=== PATIENT | female | born 1995 | race Caucasian/White ===

== ENCOUNTER → 2019-03-18 10:29 | Outpatient (CLI) | payer OTHER, SELFPAY ==
[2019-03-18 12:19] LABS: Urine N gonorrhoeae NOT DETECTED
[2019-03-18 12:29] LABS: Urine Chlamydia NOT DETECTED
== END ==
PROVIDERS: PCP Family Medicine; Visit Provider Physician Assistant
DX: B37.3 Candidiasis of vulva and vagina (principal); R82.90 Unspecified abnormal findings in urine; Z11.3 Encounter for screening for infections with a predominantly sexual mode of transmission
CPT/HCPCS: 87077; 87086; 87491; 87591